=== PATIENT | female | born 1945 | race Caucasian/White ===

== ENCOUNTER → 2017-03-06 | Outpatient (CLI) | payer OTHER, BC ==
[~2017-03-06] MED LIST: FLUOXETINE20 MG/5 M1 PO; IBUPROFEN 200200 M1 PO; LAMOTRIGINE PO; LEVOTHYROXIN0.112 M1 PO; LORAZEPAM PO; MS CONTIN15 MG PO; SEROQUEL 25 MG25 M1 PO; SYMBICORT160 MCG/4. INH; TRAMADOL 50 MG50 MG PO; XARELTO10 MG PO; ZETONNA6.1 GM NS
== END ==
LOC: RAD 09:11
DX: Z12.31 Encounter for screening mammogram for malignant neoplasm of breast (principal)

== ENCOUNTER → 2017-10-31 | Outpatient (CLI) | payer OTHER, BC | LOC: MRI 09:20 | DX: M47.896 Other spondylosis, lumbar region (principal); M48.061 Spinal stenosis, lumbar region without neurogenic claudication ==

== ENCOUNTER → 2018-07-29 | Outpatient (CLI) | payer OTHER, BC | LOC: RAD 11:18 | DX: Z12.31 Encounter for screening mammogram for malignant neoplasm of breast (principal) ==

== ENCOUNTER → 2019-03-05 | Outpatient (CLI) | payer OTHER, BC | LOC: RAD 10:06 | DX: N63.10 Unspecified lump in the right breast, unspecified quadrant (principal); R92.2 Inconclusive mammogram; E78.5 Hyperlipidemia, unspecified; Z85.3 Personal history of malignant neoplasm of breast ==

== ENCOUNTER → 2019-09-09 | Outpatient (CLI) | payer OTHER, BC | LOC: RAD 13:47 | DX: N60.01 Solitary cyst of right breast (principal); Z85.3 Personal history of malignant neoplasm of breast ==